=== PATIENT | female | born 2000 | race Caucasian/White ===

== ENCOUNTER 2019-02-22 18:42 | Emergency (ER) | payer OTHER ==
[~2019-02-22] VITALS: Ht 157.5 cm; Wt 64.9 kg
[2019-02-22] MEDS ORDERED: PRENATABS RX T1 EACH (19:29)
== END 2019-02-22 21:37 | disposition home or self-care (01) ==
LOC: ER 18:42
DX: O46.8X1 Other antepartum hemorrhage, first trimester (principal)

== ENCOUNTER → 2019-04-22 | Outpatient (CLI) | payer OTHER ==
[~2019-04-22] MED LIST: PRENATABS RX T1 EACH
== END | disposition home or self-care (01) ==
LOC: PRENATAL 11:00
DX: O35.3XX0 Maternal care for (suspected) damage to fetus from viral disease in mother, not applicable or unspecified (principal)

== ENCOUNTER 2019-09-08 15:05 | Inpatient (IN) | payer OTHER ==
[~2019-09-08] VITALS: Ht 157.5 cm; Wt 3.2 kg
== END 2019-09-14 18:44 | disposition home or self-care (01) | DRG 788 ==
LOC: LDR 15:05 → O/R 09-11 14:10 → OB/GYN 09-11 14:51
PROVIDERS: ADMIT Obstetrics & Gynecology; ATTEND Obstetrics & Gynecology
PROC: 4A1HXCZ Monitoring of Products of Conception, Cardiac Rate, External Approach (ICD-10-PCS; 2019-09-11)
PROC: 10D00Z1 Extraction of Products of Conception, Low, Open Approach (ICD-10-PCS; principal; 2019-09-11 12:00)
DX: O82 Encounter for cesarean delivery without indication (principal); O76 Abnormality in fetal heart rate and rhythm complicating labor and delivery; Z22.330 Carrier of Group B streptococcus; Z3A.40 40 weeks gestation of pregnancy; Z37.0 Single live birth

== ENCOUNTER → 2024-06-05 | Emergency (ER) | payer OTHER ==
[~2024-06-05] VITALS: Ht 157.5 cm; Wt 68.0 kg
[~2024-06-05] MED LIST changes: +OSEL75CA PO; +TUSNEL LIQUID178 ML PO
[2024-06-05 12:20] VITALS: BP 110/78; O2SAT 99
== END | disposition home or self-care (01) ==
LOC: ER 11:37
DX: J10.1 Influenza due to other identified influenza virus with other respiratory manifestations (principal)